=== PATIENT | female | born 1995 | race Caucasian/White ===

== ENCOUNTER 2016-07-30 09:25 | Outpatient (CLI) | payer SELFPAY | END 2016-07-30 09:26 | disposition EMS.NT | LOC: EMS 09:25 | PROVIDERS: ATTEND Surgery | DX: Z03.89 Encounter for observation for other suspected diseases and conditions ruled out (principal); W01.198A Fall on same level from slipping, tripping and stumbling with subsequent striking against other object, initial encounter ==